=== PATIENT | female | born 1975 | race African-American/Black ===

== ENCOUNTER → 2020-12-13 08:06 | Outpatient (CLI) | payer OTHER, SELFPAY ==
--- NOTE | 2020-12-13 09:21 | MRI_ITS ---
STUDY: MRI RIGHT ANKLE WITHOUT CONTRAST REASON FOR EXAM: Female, 45 years old. ACHILLES TEAR TECHNIQUE: Standardized fat and water weighted pulse sequences were obtained in all 3 orthogonal planes. COMPARISON: None. FINDINGS: Normal subcutis adipose space. Normal posterior tibialis tendon. Normal flexor digitorum longus tendon. Normal flexor hallucis longus tendon. Normal peroneus longus and brevis tendons. Normal tibialis anterior tendon. Normal extensor hallucis longus tendon. Normal extensor digitorum longus tendons. There is tendinosis of the Achilles tendon with diffuse tendon thickening, but without a partial, intratendinous, or full-thickness tear. Mild edema of the posterior aspect of Kager''s fat pad consistent with peritendinitis as. Mild posterior paratenonitis. Normal plantar fascia. Normal plantar calcaneal tubercles. Normal intrinsic muscles of the rearfoot. Normal distal tibiofibular syndesmotic ligamentous complex. Normal lateral ligamentous complex. Normal subtalar ligaments and sinus tarsi. Normal deltoid ligamentous complexes. Normal plantar calcaneonavicular (spring) ligament. Normal tibiotalar articulation. Normal talar dome. Normal subtalar articulations. Normal talonavicular articulation. Normal calcaneocuboid articulation. Normal navicular-cuneiform articulations. MRI/Lower Ext Joint Only (Routine) IMPRESSION: Mild insertional Achilles tendinitis with mild peritendinosis is posterior paratenonitis. Electronically Signed: Mateo Allred MD at 8:57 EDT Tel , Service support ,
== END ==
LOC: MRI 08:07
PROVIDERS: PCP Student in an Organized Health Care Education/Training Program; Referring Provider Podiatrist; Visit Provider Podiatrist
DX: M76.60 Achilles tendinitis, unspecified leg (principal); M79.671 Pain in right foot
CPT/HCPCS: 73721

== ENCOUNTER 2021-01-20 04:08 | Emergency (ER) | payer OTHER, SELFPAY ==
[2021-01-20] VITALS (7 sets, daily range): BP systolic 153–205; BP diastolic 86–131; PULSE 64–75; RESP 16–18; TEMP 36.1; O2SAT 97–100; BMI 41.5
--- NOTE | 2021-01-20 04:20 | EKG12_ITS ---
Test Reason : DYSRHYTHMIA Blood Pressure : / mmHG Vent. Rate : 059 BPM Atrial Rate : 059 BPM P-R Int : 152 ms QRS Dur : 086 ms QT Int : 442 ms P-R-T Axes : 054 005 025 degrees QTc Int : 437 ms Sinus bradycardia Nonspecific T wave abnormality Abnormal ECG Confirmed by JOE GARCÍA, ANDREW ([id number]), social media editor KYLEE VAZQUEZ ([id number]) on 01/21/2021 11:51:37 AM Referred By: Confirmed By:ANDREW DIAZ MD
--- NOTE | 2021-01-20 04:20 | RAD_ITS ---
STUDY: X-RAY CHEST REASON FOR EXAM: Female, 45 years old. Hypertensive Urgency TECHNIQUE: Single frontal view of the chest. COMPARISON: None. FINDINGS: The lungs are clear and expanded. There is no demonstrated pleural abnormality. Normal size heart. Normal mediastinum and luisana. Normal visualized pulmonary arteries. Normal visualized aortic arch and descending thoracic aorta. There are diffuse degenerative changes of the visualized thoracic spine. Normal visualized ribs, clavicles, and shoulders. There is no demonstrated abnormality of the visualized soft tissue structures of the upper abdomen. RAD/Chest 1 View (Portable) IMPRESSION: Normal x-ray examination of the chest. Electronically Signed: Rajesh Hoang MD at 5:20 EDT Tel , Service support ,
--- NOTE | 2021-01-20 04:20 | CT_ITS ---
STUDY: CT BRAIN WITHOUT CONTRAST REASON FOR EXAM: Female, 45 years old. Headache RADIATION DOSAGE (If Supplied By Facility): CTDIvol = ( 44.99 ) mGy, DLP = ( 829.85 ) mGycm TECHNIQUE: Transaxial CT imaging of the brain was performed without administration of intravenous contrast material. Individualized dose optimization techniques were used for this CT. COMPARISON: No relevant priors. FINDINGS: Normal soft tissue structures. Normal calvarium. Normal size ventricles and extra-axial spaces for the patient''s age. Normal white matter tracts of the cerebral hemispheres. Normal basal ganglia and thalami. Normal brainstem. Normal cerebellum. There is no intracranial hemorrhage. There are no findings of an acute ischemic infarction. Paranasal sinus disease. CT/Brain/Head without Contrast IMPRESSION: There is no acute territorial infarct or intracranial hemorrhage identified. Patient''s symptomology persists or there is continuing clinical concern MRI or follow-up CT scan can be performed. Electronically Signed: Rajesh Hoang MD at 6:06 EDT Tel , Service support ,
[2021-01-20 04:28] LABS: Absolute Neutrophil Count 7.9 X10^3/uL (2.0-7.7); Basophil# 0.06 X10^3/uL; Basophil% 0.5 % (0-1); Eosinophil# 0.26 X10^3/uL; Hematocrit 41.3 % (37-47); Hemoglobin 13.3 g/dL (12.0-15.0); Mean Corp Hgb Conc 32.2 g/dL (32-36); Mean Corpuscular Hgb 27.7 pg (27.0-32.0); Mean Corpuscular Volume 85.9 fL (81-99); Mean Platelet Vol. 9.5 fl (6.2-12.0); Monocyte# 0.96 X10^3/uL; Monocyte% 7.5 % (0-10); NRBC Flagged by Analyzer 0 % (0-5); Neutrophil # 7.91 X10^3/uL (2.7-7.7); Neutrophil % 61.4 % (47-70); Platelet Count 389 K/mm3 (150-450); RBC Distribution Width SD 40.3 fl (35.1-43.9); Red Blood Count 4.81 M/mm3 (4.2-5.4); White Blood Count 12.9 K/mm3 (4.4-11.0)
[2021-01-20] MEDS: hydrALAZINE 20 MG/ML Vial IV (04:29)
[2021-01-20] MEDS: Ketorolac 30 MG/ML Syringe IV (04:30)
[2021-01-20 04:49] LABS: ALB/GLOB Ratio 0.8 RATIO (0.9-2.4); AST(SGOT) 14 U/L (15-37); Alanine Aminotransfer ALT/SGPT 21 U/L (13-56); Albumin, Serum 3.4 g/dL (3.2-5.0); Alkaline Phosphatase 98 U/L (45-117); Anion Gap 6 (5-15); BUN 15 mg/dL (7-18); BUN/Creat Ratio 15.1 RATIO (10-20); Chloride 100 mmol/L (98-107); EST Glomerular Filtration Rate 64 mL/min (>60); Est Glom Filt Rate - Afr Amer 78 mL/min (>60); Estimated Creatinine Clearance 75.03 ml/min; Globulin 4.4 g/dL (2.2-4.2); Glucose 97 mg/dL (74-106); Potassium 3.8 mmol/L (3.5-5.1); Protein, Total 7.8 g/dL (6.4-8.2); Sodium Level 137 mmol/L (136-145); Troponin-I HS 75.5 pg/mL (3.0-53.7)
--- NOTE | 2021-01-20 04:49 | EX.ED.DYSGE1 ---
HPI <Dr. Lucas Flores DO - Last Filed: 01/20/21 06:57> History of Present Illness Chief Complaint: Headache Informant: patient Narrative Narrative: 45-year-old female presenting to the emergency department for the evaluation of headache. Patient states symptoms have been present for 4 days. She woke with a headache mostly right-sided goes down towards the right neck. She states that she has not really had any light sensitivity or phonophobia. No nausea vomiting. She thought that perhaps she had an ear infection so [facility]. Was noted that her blood pressure the time was 250 systolic. She does have a history of hypertension taking amlodipine benazepril hydrochlorothiazide and carvedilol. She states that her blood pressure has continued to be elevated the past 4 days. Her headache has been consistent. She denies any arm or leg symptoms. No chest pain or shortness of breath. She has not had a headache like this in the past. She notes that the neck discomfort seems to be worse with movement. PFSH <Dr. Lucas Flores DO - Last Filed: 01/20/21 06:57> [facility] Medical History Asthma HTN (hypertension) Home Medications amlodipine 5 mg tablet 5 mg PO DAILY 08/26/19 [History Last Taken Unknown] benazepril 40 mg tablet 40 mg PO DAILY 08/26/19 [History Last Taken Unknown] carvedilol 12.5 mg tablet 12.5 mg PO BID 08/26/19 [History Last Taken Unknown] fluoxetine 20 mg capsule mg PO 08/26/19 [History Last Taken Unknown] hydrochlorothiazide 25 mg tablet PO 08/26/19 [History Last Taken Unknown] amoxicillin 875 mg-potassium clavulanate 125 mg tablet 1 tab PO BID 10 Days #20 tab 01/18/21 [Rx Last Taken Unknown] hydralazine 25 mg PO TID PRN #15 tab 01/20/21 [Rx Last Taken Unknown] Allergy/AdvReac Type Severity Reaction Status Date / Time cephalexin [From Keflex] Allergy Unknown Verified 01/20/21 04:11 codeine Allergy Unknown Verified 01/20/21 04:11 Family History Other Cancer Diabetes Hypertension Surgical History Abscess of breast History of hysterectomy Social History Smoking Status: Former smoker alcohol intake: current Alcohol type: beer and hard liquor ROS <Dr. Lucas Flores DO - Last Filed: 01/20/21 06:57> ROS ED Constitutional Constitutional ED: Denies chills or weight loss Eyes Eyes: Denies blurry vision, change in vision or diplopia ENT ENT ED: Denies ear pain, rhinorrhea or sore throat Cardiovascular Cardiovascular: Denies chest pain, orthopnea, palpitations or racing heartbeat Respiratory/Chest Respiratory/Chest: Denies cough, dyspnea or orthopnea Gastrointestinal Gastrointestinal: Denies abdominal pain, diarrhea, nausea or vomiting Genitourinary Genitourinary ED: Denies dysuria, hematuria or urinary frequency Musculoskeletal Musculoskeletal: Reports neck pain; Denies arthralgias or myalgias Integumentary Denies abscess or rash Neurologic Neurologic: Reports headache(s); Denies weakness Psychiatric Psychiatric: Denies anxiety, depression, suicidal ideation or suicidal thoughts Endocrine Endocrinology: Denies polydipsia, polyphagia or polyuria Allergic/Immunologic Allergic/Immunologic ED: Denies mouth swelling, tongue swelling or urticaria EXAM <Dr. Lucas Flores DO - Last Filed: 01/20/21 06:57> Physical Exam Const Vital Signs: 01/20/21 04:08 01/20/21 05:00 01/20/21 05:29 Temperature 97.0 F L Temperature Source Temporal Pulse Rate 64 74 71 Respiratory Rate 16 16 18 Blood Pressure 205/131 H 192/95 H 153/86 H Blood Pressure Mean 155 127 108 Pulse Ox 99 Oxygen Delivery Method Room Air 01/20/21 07:23 01/20/21 09:24 01/20/21 10:02 Temperature Temperature Source Pulse Rate 68 75 74 Respiratory Rate 16 Blood Pressure 185/110 H 195/128 H 187/121 H Blood Pressure Mean 135 150 143 Pulse Ox 100 97 Oxygen Delivery Method Room Air Room Air 01/20/21 10:21 Temperature Temperature Source Pulse Rate Respiratory Rate Blood Pressure 162/112 H Blood Pressure Mean 128 Pulse Ox Oxygen Delivery Method Positive well nourished and well developed General Appearance ED: well developed HEENT Reports normocephalic, head/scalp atraumatic and moist mucous membranes Eyes PERRL and EOMs intact bilaterally Neck no lymphadenopathy, supple and no JVD Resp normal respiratory effort and clear to auscultation bilaterally Cardio regular rate, regular rhythm and no murmurs GI normal to inspection, nondistended, normoactive bowel sounds and non-tender Palpation: soft Back/Spine no CVA tenderness and normal ROM Extremity normal to inspection General Extremety ED: Negative for edema General Extremity: Negative for edema Neuro oriented x3 and CN's II-XII intact bilaterally Sensorium / Orientation: alert Motor Exam: strength 5/5 throughout Psych mental status grossly normal Mood & Affect: Negative for depressed or tearful Skin no rashes or lesions noted and no wounds <Dr. Mark Pino MD - Last Filed: 01/20/21 10:42> Physical Exam Const Vital Signs: 01/20/21 04:08 01/20/21 05:00 01/20/21 05:29 Temperature 97.0 F L Temperature Source Temporal Pulse Rate 64 74 71 Respiratory Rate 16 16 18 Blood Pressure 205/131 H 192/95 H 153/86 H Blood Pressure Mean 155 127 108 Pulse Ox 99 Oxygen Delivery Method Room Air 01/20/21 07:23 01/20/21 09:24 01/20/21 10:02 Temperature Temperature Source Pulse Rate 68 75 74 Respiratory Rate 16 Blood Pressure 185/110 H 195/128 H 187/121 H Blood Pressure Mean 135 150 143 Pulse Ox 100 97 Oxygen Delivery Method Room Air Room Air 01/20/21 10:21 Temperature Temperature Source Pulse Rate Respiratory Rate Blood Pressure 162/112 H Blood Pressure Mean 128 Pulse Ox Oxygen Delivery Method MDM <Dr. Lucas Flores DO - Last Filed: 01/20/21 06:57> [facility] Narrative Medical decision making narrative: Patient received Toradol for pain and hydralazine 20 mg for blood pressure. Her blood pressure has come down to 153/86 with a reduction of about 25%. CT the brain was negative. Troponin high-sensitivity at 75.5 possibly representing heart strain. A delta troponin was ordered. CTA of the head neck was also ordered to rule out dissection given the headache and pain on the right side. This point care the patient will be turned over to the oncoming physician for check of results and final disposition. Lab Data Attestation: I reviewed the patient's lab results. Labs: Laboratory Results - last 24 hr 01/20/21 01/20/21 01/20/21 04:20 04:20 04:20 WBC 12.9 H RBC 4.81 Hgb 13.3 Hct 41.3 MCV 85.9 MCH 27.7 MCHC 32.2 RDW Std Deviation 40.3 RDW Coeff of Jeanne 13.0 Plt Count 389 MPV 9.5 Immature Gran % (Auto) 0.600 Neut % (Auto) 61.4 Lymph % (Auto) 28.0 [place] % (Auto) 7.5 Eos % (Auto) 2.0 Baso % (Auto) 0.5 Absolute Neuts (auto) 7.9 H Absolute Lymphs (auto) 3.60 Nucleated RBC % 0 Sodium 137 Potassium 3.8 Chloride 100 Carbon Dioxide 31.0 Anion Gap 6 BUN 15 Creatinine 1.00 Estim Creat Clear Calc 75.03 Est GFR (MDRD) Af Amer 78 Est GFR (MDRD) Non-Af 64 BUN/Creatinine Ratio 15.1 Glucose 97 Calcium 9.0 Total Bilirubin 0.40 AST 14 L ALT 21 Alkaline Phosphatase 98 Troponin I High Sens 75.5 H* Total Protein 7.8 Albumin 3.4 Globulin 4.4 H Albumin/Globulin Ratio 0.8 L Serum , Qual NEGATIVE 01/20/21 06:25 WBC RBC Hgb Hct MCV MCH MCHC RDW Std Deviation RDW Coeff of Jeanne Plt Count MPV Immature Gran % (Auto) Neut % (Auto) Lymph % (Auto) [place] % (Auto) Eos % (Auto) Baso % (Auto) Absolute Neuts (auto) Absolute Lymphs (auto) Nucleated RBC % Sodium Potassium Chloride Carbon Dioxide Anion Gap BUN Creatinine Estim Creat Clear Calc Est GFR (MDRD) Af Amer Est GFR (MDRD) Non-Af BUN/Creatinine Ratio Glucose Calcium Total Bilirubin AST ALT Alkaline Phosphatase Troponin I High Sens 76.3 H* Total Protein Albumin Globulin Albumin/Globulin Ratio Serum , Qual Radiography Diagnostic Testing: Radiology Impression Brain CT 01/20/21 04:20 IMPRESSION: There is no acute territorial infarct or intracranial hemorrhage identified. Patient''s symptomology persists or there is continuing clinical concern MRI or follow-up CT scan can be performed. Electronically Signed: aRjesh Hoang MD at 6:06 EDT Tel , Service support , Chest X-Ray 01/20/21 04:20 IMPRESSION: Normal x-ray examination of the chest. Electronically Signed: Rajesh Hoang MD at 5:20 EDT Tel , Service support , Head/Neck CTA 01/20/21 06:44 IMPRESSION: Normal CTA Head and neck with contrast. Electronically Signed: Chase Lindquist MD at 8:26 EDT , Service support , EKG Initial EKG: Attestation: I personally reviewed and interpreted this EKG as follows: Comments: EKG shows a sinus bradycardia at a rate of 59 bpm. No concerning features of ACS or ectopy noted. <Dr. Mark Pino MD - Last Filed: 01/20/21 10:42> [facility] MDM Narrative Medical decision making narrative: Took over care of this patient, we were monitoring her with regards to her blood pressure after she was treated with hydralazine. Her pressure gradually creeped up to the 190s. She is on clonidine at home and I gave her 0.2 mg and continue to observe. On reevaluation she is feeling fine and her blood pressure was about 160/112. She states that her diastolic is always over 100. She is comfortable going home, she is given the prescription hydralazine that was given to her, and will follow up and we discussed reasons to return. Lab Data Labs: Laboratory Results - last 24 hr 01/20/21 01/20/21 01/20/21 04:20 04:20 04:20 WBC 12.9 H RBC 4.81 Hgb 13.3 Hct 41.3 MCV 85.9 MCH 27.7 MCHC 32.2 RDW Std Deviation 40.3 RDW Coeff of Jeanne 13.0 Plt Count 389 MPV 9.5 Immature Gran % (Auto) 0.600 Neut % (Auto) 61.4 Lymph % (Auto) 28.0 [place] % (Auto) 7.5 Eos % (Auto) 2.0 Baso % (Auto) 0.5 Absolute Neuts (auto) 7.9 H Absolute Lymphs (auto) 3.60 Nucleated RBC % 0 Sodium 137 Potassium 3.8 Chloride 100 Carbon Dioxide 31.0 Anion Gap 6 BUN 15 Creatinine 1.00 Estim Creat Clear Calc 75.03 Est GFR (MDRD) Af Amer 78 Est GFR (MDRD) Non-Af 64 BUN/Creatinine Ratio 15.1 Glucose 97 Calcium 9.0 Total Bilirubin 0.40 AST 14 L ALT 21 Alkaline Phosphatase 98 Troponin I High Sens 75.5 H* Total Protein 7.8 Albumin 3.4 Globulin 4.4 H Albumin/Globulin Ratio 0.8 L Serum , Qual NEGATIVE 01/20/21 06:25 WBC RBC Hgb Hct MCV MCH MCHC RDW Std Deviation RDW Coeff of Jeanne Plt Count MPV Immature Gran % (Auto) Neut % (Auto) Lymph % (Auto) [place] % (Auto) Eos % (Auto) Baso % (Auto) Absolute Neuts (auto) Absolute Lymphs (auto) Nucleated RBC % Sodium Potassium Chloride Carbon Dioxide Anion Gap BUN Creatinine Estim Creat Clear Calc Est GFR (MDRD) Af Amer Est GFR (MDRD) Non-Af BUN/Creatinine Ratio Glucose Calcium Total Bilirubin AST ALT Alkaline Phosphatase Troponin I High Sens 76.3 H* Total Protein Albumin Globulin Albumin/Globulin Ratio Serum , Qual Radiography Diagnostic Testing: Radiology Impression Brain CT 01/20/21 04:20 IMPRESSION: There is no acute territorial infarct or intracranial hemorrhage identified. Patient''s symptomology persists or there is continuing clinical concern MRI or follow-up CT scan can be performed. Electronically Signed: Rajesh Hoang MD at 6:06 EDT Tel , Service support , Chest X-Ray 01/20/21 04:20 IMPRESSION: Normal x-ray examination of the chest. Electronically Signed: Rajesh Hoang MD at 5:20 EDT Tel , Service support , Head/Neck CTA 01/20/21 06:44 IMPRESSION: Normal CTA Head and neck with contrast. Electronically Signed: Chase Lindquist MD at 8:26 EDT , Service support , Discharge Plan Triage Chief Complaint: Headache ED Provider: Lucas Flores Dx/Rx/DC Orders Clinical Impression: Hypertensive urgency Instructions: ED High Blood Pressure Hypertension Prescriptions: New hydralazine 25 mg tablet 25 mg PO TID PRN (Reason: hypertensive urgency) Qty: 15 RF: 0 No Action fluoxetine 20 mg capsule PO RF: 0 benazepril 40 mg tablet 40 mg PO DAILY RF: 0 hydrochlorothiazide 25 mg tablet PO RF: 0 amlodipine 5 mg tablet 5 mg PO DAILY RF: 0 carvedilol 12.5 mg tablet 12.5 mg PO BID RF: 0 amoxicillin-pot clavulanate [Augmentin] 875-125 mg tablet 1 tab PO BID 10 Days Qty: 20 RF: 0 Primary Care Provider: Sacha Lott Referrals: Sacha Lott, [Primary Care Provider] - As soon as possible Disposition Disposition: Home, Self Care Discharge Date/Time: 01/20/21 10:34
[2021-01-20 04:51] LABS: Internal QC Validated? YES +Cl - CLEAR BKGD; Pregnancy, Serum, hCG Quali. NEGATIVE Negative
--- NOTE | 2021-01-20 06:44 | CT_ITS ---
STUDY: CTA HEAD AND NECK WITH CONTRAST REASON FOR EXAM: Female, 45 years old. 4 day history of headaches. Possible right carotid dissection. RADIATION DOSAGE (If Supplied By Facility): CTDIvol = ( 20.50 ) mGy, DLP = ( 752.28 ) mGycm TECHNIQUE: CT angiography was performed with a multi-detector CT scanner. Data acquisition was obtained from the skull base through the vertex following intravenous administration of IV 100mL [id number]-[id number]. MIP images were reconstructed from the axial data set. Post-processing of the angiographic images was performed, with multiplanar reformation and 3D reconstruction. Individualized dose optimization techniques were used for this CT. COMPARISON: No relevant priors. FINDINGS: Normal bilateral petrous carotid arteries. Normal right cavernous carotid artery with a normal supraclinoid bifurcation. Normal left cavernous carotid artery with a normal supraclinoid bifurcation. Normal right A1 segments of the anterior cerebral artery. Normal left A1 segments of the anterior cerebral artery. Normal intact anterior communicating artery (ACOM). Normal bilateral A2 segments of the anterior cerebral arteries. Normal right M1 and M2 segments of the middle cerebral arteries, with a normal M1 bifurcation. Normal left M1 and M2 segments of the middle cerebral arteries, with a normal M1 bifurcation. Normal right posterior communicating artery (PCOM). 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 Normal bilateral vertebral arteries. Normal basilar artery with a normal basilar bifurcation. The visualized bilateral superior cerebellar (SCA) arteries are normal. Normal bilateral P1, P2 and visualized P3 segments of the posterior cerebral arteries. There is no demonstrated aneurysm of the [place]. There is no demonstrated abnormality of the visualized brain. AORTIC ARCH: Normal visualized aortic arch. Normal origins of the brachiocephalic, left common carotid, and left subclavian arteries. RIGHT CAROTID ARTERIES: Normal right common carotid artery (CCA). Normal right common carotid bulb. Normal origin of the right internal carotid (ICA) artery without a hemodynamically significant stenosis. Normal visualized cervical portion of the right internal carotid artery. Normal origin of the right external carotid artery (ECA). LEFT CAROTID ARTERIES: Normal left common carotid artery (CCA). Normal left common carotid bulb. Normal origin of the left internal carotid (ICA) artery without a hemodynamically significant stenosis. Normal visualized cervical portion of the left internal carotid artery. Normal origin of the left external carotid artery (ECA). VERTEBRAL ARTERIES: There is enhancement within the bilateral vertebral arteries with a small left vertebral artery, and a dominant right vertebral artery. Prominent anterior spondylosis at the C4-C5 and C5-C6 levels. CT/CTA Head AND Neck W/ Contrast IMPRESSION: Normal CTA Head and neck with contrast. Electronically Signed: Chase Lindquist MD at 8:26 EDT , Service support ,
[2021-01-20 06:57] LABS: Troponin-I HS 76.3 pg/mL (3.0-53.7)
[2021-01-20] MEDS: cloNIDine HCl 0.2 MG Tablet PO (08:33)
== END 2021-01-20 10:34 | disposition home or self-care (01) ==
PROVIDERS: Emergency Provider Emergency Medicine; PCP Student in an Organized Health Care Education/Training Program
DX: I16.0 Hypertensive urgency (principal); I10 Essential (primary) hypertension; R51.9 Headache, unspecified; J45.909 Unspecified asthma, uncomplicated; Z79.899 Other long term (current) drug therapy; Z87.891 Personal history of nicotine dependence
CPT/HCPCS: 70450; 70496; 70498; 71045; 80053; 84484; 84703; 85025; 93005; 96374; 96375; 99284; Q9967; A4216

== ENCOUNTER → 2024-10-22 | Outpatient (CLI) | payer OTHER, SELFPAY ==
--- NOTE | 2024-10-22 07:18 | CT_ITS ---
PROCEDURE: LIMITED CHEST CT CARDIAC ONLY REASON FOR EXAM: CAD SCREENING LOW CAD RISK TECHNIQUE: Prone and supine chest CT without contrast. One or more dose reduction techniques were used (e.g., Automated exposure control, adjustment of the mA and/or kV according to patient size, use of iterative reconstruction technique). COMPARISON: None FINDINGS: Hardware: None Lymph nodes: No mediastinal hilar or axillary lymphadenopathy. Heart and Vasculature: Normal heart size. No pericardial effusion. Atherosclerotic calcifications of the thoracic aorta. Thoracic aorta and pulmonary arteries have normal contours; noncontrast technique limits evaluation. Coronary Artery Calcifications: Present Lungs and Airways: 2 mm calcified granuloma in the right lower lobe. Pleura: Unremarkable Upper Abdomen: Unremarkable Bones: Degenerative changes of the thoracic spine. CT/Limited Chest CT Cardiac Only IMPRESSION: Coronary artery calcification (CAC) is is present Reading Location: [place] [id number]
--- NOTE | 2024-10-22 10:33 | CA.SCORE ---
Calcium Scoring Date of Study:: 10/22/24 Indications Indications: Coronary artery disease screening Coronary Calcium Scoring: High-resolution Computed Tomographic imaging of the chest was performed on [10/22/2024], with particular attention paid to the coronary arteries. Images from the examination were analyzed for the presence and extent of coronary artery calcification , using coronary calcium quantification software. The patient tolerated the procedure well and there were no complications. The results of the coronary calcification analysis are provided below. Findings Coronary Artery Left Main (LM): 0 Left Anterior Descending (LAD): 60 Left Circumflex (LCX): 19.5 Right Coronary Artery (RCA): 130 Total Agatston Score: 209.5 Percentile Ranking: Greater than 90th percentile Calcium Scoring Interpretation: Different methods to categorize the overall amount of coronary plaque. Overall amount CAC SIS Visual of coronary plaque P1 Mild -100 <2 1-2 vessels with mild amount of plaque P2 Moderate 101-300 3-4 1-2 vessels with moderate amount, 3 vessels with mild amount of plaque P3 Severe 301-999 5-7 3 vessels with moderate amount, 1 vessel with severe amount of plaque P4 Extensive >1000 >8 2-3 vessels with severe amount of plaque Calcium Score: Moderate: 1-2 vessels w/moderate amt, 3 vessels w/mild amt of plaque Conclusion: 2 vessels with mild amount of plaque noted in 1 vessel with moderate plaque disease present
== END | disposition home or self-care (01) ==
LOC: CT 07:17
PROVIDERS: PCP Student in an Organized Health Care Education/Training Program; Referring Provider Student in an Organized Health Care Education/Training Program; Visit Provider Student in an Organized Health Care Education/Training Program
DX: Z13.6 Encounter for screening for cardiovascular disorders (principal)
CPT/HCPCS: 75571; 76380